=== PATIENT | female | born 1960 | race Caucasian/White ===

== ENCOUNTER → 2018-01-30 | Outpatient (CLI) | payer OTHER ==
[~2018-01-30] VITALS: Ht 165.1 cm; Wt 86.8 kg
[~2018-01-30] MED LIST: 5-HTP200 MG PO; AMITRIPTYLINE H25 M2 PO; CALCIUM500 MG PO; CELECOXIB200 MG PO; GNP B-COMPLEX1 EACH PO; TOPAMAX 25 MG T25 M1 PO; VALIUM5 MG PO; VALTREX1000 MG PO; VITAMIN D2000 UNIT PO; ZINC30 MG PO
--- NOTE | ~2018-01-30 | HPC ---
[facility] [place] [address] PAIN MANAGEMENT CONSULTATION Name: JARED BOUCHER Room #: REG TOMER M.R.#: [id number] Admission: 01/30/18 Attend Phys: Erwin Slater MD Discharge: Date of : 64 Report #: [id number] THIS REPORT FOR: //name// CC: Erwin Smalls MD DATE OF SERVICE: 01/30/2018 CHIEF COMPLAINT: Severe neck pain and radiation into the face. I last saw the patient nearly 4 years ago. I had forgotten the visit and was reminded of it by the consultation that I provided for her in 02/2014. She did not mention that I had seen her previously during our visit today. She is here today for similar symptoms as I review her record from 2014. I do note that at that time she complained more of a facial pain. While the facial pain, which is symmetrical and pressure like involving the cheeks and the jaw as well as the forehead, are problematic, it is the neck pain that seems to be worse. The patient describes her pain is a constant pressure, avoiding the use of the word pain except in most severe instances. She gets some relief from eating, it relaxes her; gentle massage, which her provides for her, physical therapy and she has some diversion distraction from work. Sleep has often been a nice escape for her and she has slept effectively. She has tried a single epidural injection many years ago with Dr. Blanco [facility] without benefit. She has had chiropractic treatments with minimal improvement. Her only medication trial has been Excedrin Migraine, which she takes three times a week and finds that it can drop her pain from a 7 down to a 3 or so for about 4-5 hours, but she admits that she does not like taking medication. She was on amitriptyline and gained 40 pounds and although it was helpful for the symptoms, she discontinued it. She has had no benefit from nonsteroidal anti-inflammatory drugs, but has not significantly utilized them nor has she had several trials. She has not had prescription strength anti-inflammatories. She and her try to walk and do some exercise on a regular basis. It is difficult during cold weather and this seems to also worsen her pain. Over the last 3 months her pain has worsened. She scores it today as a 6/10. It is affecting her life in many ways. 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 The inability to alleviate her pain causes depression and she scores her mood as an 8/10 in interference by pain. Enjoyment of life is scored at 7/10. It [address] [address] PAIN MANAGEMENT CONSULTATION Name: JARED BOUCHER Room #: REG TOMER Adams#: [id number] Admission: 01/30/18 Attend Phys: Erwin Slater MD Discharge: Date of : 64 Report #: [id number] interferes with many of her pleasurable daily activities. She does not smoke and drinks alcohol 2-3 times a week in a social setting. MEDICATIONS: Calcium, D3, Valtrex, Valium as needed and 5-HTP 200 mg once daily. ALLERGIES: NITROFURANTOIN. PAST MEDICAL HISTORY: Remarkable for asthma. PAST SURGICAL HISTORY: Cholecystectomy. SOCIAL HISTORY: As noted above. REVIEW OF SYSTEMS: Positive for facial and headaches as described, asthma, nocturia. She denies memory loss, denies confusion, nervousness, depression, denies insomnia. PHYSICAL EXAMINATION: Pleasant female, at one point during our discussion was on the verge of tears, but did not cry. Her blood pressure 111/50, heart rate 69, respirations 16, O2 sat 98. BMI is 31.5. Pupils are equal, round, react to light. EOMs are intact. There is mild tenderness below the occiput. I did not appreciate significant muscle tension. Range of motion of the cervical spine is quite good with some mild increase in pain with neck extension, but otherwise it does not markedly increase her normal symptoms of pain. No pain in the shoulders. Deep tendon reflexes are 2+ biceps, triceps, brachioradialis, also is at knees and ankles. Sensation is intact. All strength testing is noted to be symmetrical and equal. Chest is clear to auscultation. Cardiac rhythm is regular. X-rays reviewed include a new MRI, which shows continuation of degeneration of the C3-C4 facet joint on the right. This was noted in 2012 and there has been some slight increase. There is edema indicating swelling and inflammation in the area. There are also several disk osteophyte complexes noted, which contribute to pain with severe left foraminal stenosis at C6-C7 and C5-C6. IMPRESSION: Chronic cervicalgia with atypical radiation into the face and deep pressure sensation. The C3-C4 facet joint could be her initiator of pain. This is possibly followed by muscle tension resulting in the occipital headaches and the pain that radiates forward. It is also possible that she could have some discogenic pain from the cervical spine, not out of the question. A component of her pain is certainly an occipital headache mediated through the [facility] [address] [place] [address] PAIN MANAGEMENT CONSULTATION Name: JARED BOUCHER Room #: TIFF Adams#: [id number] Admission: 01/30/18 Attend Phys: Erwin Slater MD Discharge: Date of : 64 Report #: [id number] occipital nerves. I do think that this is the primary pain generator, but may be secondary. RECOMMENDATIONS: 1. Trial of Celebrex 200 mg once daily for the facet arthropathy noted on MRI on the right at C3-C4. If we can decrease inflammation there, we may affect the change throughout the entire head and neck. 2. Consider C3-C4 cervical facet injection. She might be a candidate down the line for radiofrequency ablation, although this was not discussed thoroughly today. First step would be a diagnostic/therapeutic injection. I would recommend a lateral approach to the facet joint with triamcinolone and 0.5% bupivacaine. Procedure was explained with risks and benefits. She would like to proceed with that diagnostic and therapeutic injection and we will get her on the schedule before the end of the year. Her response to amitriptyline was encouraging. She might benefit from Cymbalta, but given her experience with the previous tricyclic antidepressant, she is reluctant to try antidepressants again for chronic pain. Followup visit planned for C3-C4 facet injections in the next few weeks. Appointment is scheduled for 02/10/2018. By: [id number] Erwin Slater MD /nt
[2018-01-30 09:12] VITALS: BP 111/50
== END ==
LOC: PAIN 00:30
DX: M54.2 Cervicalgia (principal); R20.8 Other disturbances of skin sensation; G89.29 Other chronic pain

== ENCOUNTER → 2018-02-10 | Outpatient (CLI) | payer OTHER ==
[~2018-02-10] VITALS: Ht 165.1 cm; Wt 86.6 kg
--- NOTE | ~2018-02-10 | HPC ---
[facility] [place] [address] PAIN MANAGEMENT CONSULTATION Name: JARED BOUCHER Room #: REG TOMER Eduardo.#: [id number] Admission: 02/10/18 Attend Phys: Erwin Slater MD Discharge: Date of : 64 Report #: [id number] THIS REPORT FOR: //name// CC: Erwin Smalls MD DATE OF SERVICE: 02/10/2018 Followup visit for neck pain with radiation to the face. The patient returns today for the injection of the C3 cervical facet joint discussed at previous visit. I reviewed her x-ray films, discussed the procedure with her including risks and benefits, and she is anxious to proceed. She had an excellent question about whether or not we should inject both sides. There is no reason we could not other than the fact that I am interested to see if her MRI findings correlate well with her bilateral symptoms. X-rays show that she has a severely arthritic right C3-C4 facet with edema. It is not out of the question that both sides are affected by this pain in some way and before we start injecting the noninvolved side from the x-ray, I would prefer to proceed with a right-sided injection. Reviewed risks and benefits and she was taken to the fluoroscopic suite for the injection. IMPRESSION: 1. X-ray evidence of C3-C4 spinal arthritis with edema. 2. Atypical facial pain. PROCEDURE: C3-C4 facet injection under fluoroscopic guidance. DESCRIPTION OF PROCEDURE: She was taken to fluoroscopic suite. She was placed prone, skin prepped with ChloraPrep on the right side of the neck. Biplanar fluoroscopic views were used to position the needle. The skin was anesthetized with 1% lidocaine. A 25-gauge needle was gently advanced into the lateral mass and dropped into the lateral capsule of the facet joint. I injected 1/4 of a milliliter of Omnipaque and spread of dye was seen along the lateral mass and some extending into the facet joint as well. This was then followed by 1 mL of 0.5% bupivacaine mixed with 4 mg of Decadron. I used Decadron for non-particulate steroid in the neck. She tolerated the procedure well and was taken to recovery room. There were no complications. There was some diagnostic component in this injection. It should be noted that her pain was reduced in recovery room from an admission level of 6 to [address] [address] PAIN MANAGEMENT CONSULTATION Name: JARED BOUCHER Room #: REG TOMER Adams#: [id number] Admission: 02/10/18 Attend Phys: Erwin Slater MD Discharge: Date of : 64 Report #: [id number] range of motion was improved. She is pleased with this response. We will follow up in 2-4 weeks. By: [id number] Erwin Slater MD /nt
[2018-02-10 10:09] VITALS: BP 116/53
== END | disposition home or self-care (01) ==
LOC: PAIN 09:51
DX: M47.812 Spondylosis without myelopathy or radiculopathy, cervical region (principal); G50.1 Atypical facial pain; R60.9 Edema, unspecified; Z88.8 Allergy status to other drugs, medicaments and biological substances; Z79.899 Other long term (current) drug therapy; Z98.890 Other specified postprocedural states

== ENCOUNTER → 2018-03-06 | Outpatient (CLI) | payer OTHER ==
[~2018-03-06] VITALS: Ht 165.1 cm; Wt 86.3 kg
--- NOTE | ~2018-03-06 | HPC ---
[facility] [place] [address] PAIN MANAGEMENT CONSULTATION Name: JARED BOUCHER Room #: REG TOMER M.Alma.#: [id number] Admission: 03/06/18 Attend Phys: Erwin Slater MD Discharge: Date of : 64 Report #: [id number] THIS REPORT FOR: //name// CC: Erwin Smalls DATE OF SERVICE: 03/06/2018 Followup visit for cervical facet arthropathy with radiation to the C2-C3 distribution. The patient returns to pain clinic today and received a single level C3-C4 facet injection. The level of injection was based upon the findings of her x-rays correlating with her symptoms. During the performance of her x-ray guided injection, I felt that the C2-C3 joint appeared also to be arthritic. I contemplated injecting it during the performance of the C3-C4 injection, but decided they would be diagnostic potential if we injected just a single joint. She did get relief, but it took about 2 weeks, a little bit longer than anticipated and she is not sure that the injection provided all of the relief. She has had episodes of improvement that occurred intermittently over the course of the last several years. I also started her on Celebrex, which she took until she developed some GI upset and then discontinued it. She may renew that and we discussed its use, side effects and benefit. PHYSICAL EXAMINATION: Today, her blood pressure is 117/64, heart rate 60, respirations 14. Her BMI is 31.7. She is able to flex her chin forward and backwards without too much discomfort, but has quite a bit of pain with rotational movements and localized discomfort and tenderness along the right side of her neck that radiates towards her face in a C2-C3 distribution. IMPRESSION: Right-sided cervical facet arthropathy with radiculopathy. RECOMMENDATIONS: Repeat facet injection under fluoroscopic guidance including C2-C3 for improved coverage. We required preauthorization for this injection and she will need to return to the clinic at her earliest convenience. I have recommended that we inject the C2-C3 and C3-C4 facet joints at followup visit. By: 1707 [id number] Erwin Slater MD /nt
[2018-03-06 13:27] VITALS: BP 117/64
--- NOTE | 2018-03-06 13:38 | NUR ---
Pain Clinic Assessment: 1. History of Osteoarthritis: History of Rheumatoid Arthritis: 2. Height: 5 ft. 5 in. 165.1 cm. Weight: 190.2 lb. oz. 86.274 kg. Patient's BMI: 31.7 3. Vital Signs: BP: 117/64 Pulse: 60 Resp: 14 Temp: 02 Sat: 100 ECG Mon: 4. Pain Intensity: 3 5. Fall Risk: Dizziness: N Needs help standing or walking: N Fallen in the last 3 months: N Fall risk comments: 6. Patient on Blood Thinner: None 7. History of Hypertension: N 8. Opioid Therapy greater than 6 weeks: N Opiate Contract Signed: 9. Risk Assessment Tool Provided: 10. Functional Assessment Tool: 11. Recreational Drug Use: Never Drug Type: Tobacco Use: Never Smoker Tobacco Type: Amount or Packs/day: How Many Years: Alcohol Use: Yes Frequency: Quant:
== END ==
LOC: PAIN 07:16
DX: M54.12 Radiculopathy, cervical region (principal); M12.88 Other specific arthropathies, not elsewhere classified, other specified site

== ENCOUNTER → 2018-03-09 | Outpatient (CLI) | payer OTHER ==
[~2018-03-09] VITALS: Ht 165.1 cm; Wt 85.3 kg
--- NOTE | ~2018-03-09 | HPC ---
[facility] [place] [address] PAIN MANAGEMENT CONSULTATION Name: JARED BOUCHER Room #: REG TOMER Angie#: [id number] Admission: 03/09/18 Attend Phys: Erwin Slater MD Discharge: Date of : 64 Report #: [id number] THIS REPORT FOR: //name// CC: Erwin Smalls DATE OF SERVICE: 03/09/2018 REASON FOR VISIT: Followup visit for atypical facial pain and facet arthropathy. HISTORY OF PRESENT ILLNESS: The patient returns today in followup. We have discussed her ongoing pain. I saw her just a couple of days ago and had had a time to consider our treatment options. It am also in a better position to make a diagnosis on potential causes of her pain by reviewing the actual MRI films, which she brought with her. I reviewed them with the patient. We spent about 15-20 minutes discussing potential causes of her pain. She describes pain in knots within her neck that are off from massage out by her therapist. The pain then radiates up through the occiput and then anteriorly towards head and face. This does follow a bit of the C2 and C3 distribution. She has fairly diffuse tightness that she feels through the face. It is not typical of what we see in the classic trigeminal neuralgia. I would classify this as atypical facial pain. Some of this may be triggered through tightness that develops through her neck and through the occiput. At her initial visit, we discussed the possibility of suboccipital injections, trigger points encompassing the splenius capitis and cervicalis muscles bilaterally as well as the C3 nerve branches in the occipital nerve. We decided today that in absence of a profound response to her facet injection treating the C3-C4 facet, which shows degeneration on the right on her MRI that we would proceed with the injections of the soft tissue. We received preauthorization from her insurance company to go forward. She has also had a trial of Celebrex, which provided little to no relief, also suggesting a way from an arthropathy, which should have some response to an anti-inflammatory. This leads me also more into a myofascial and possibly a neuropathic pain syndrome with an atypical facial distribution. She may benefit from an antidepressant but is reluctant to start one today. If so, I would start her on a tricyclic antidepressant at a low dose. She is concerned about weight gain. She took one previously, found it helpful but gained over 10 pounds. If we start one, I would consider a shorter acting medication such as desipramine or imipramine. IMPRESSION: Atypical facial pain and cervical myofascial pain syndrome. [facility] [address] [place] [address] PAIN MANAGEMENT CONSULTATION Name: JARED BOUCHER Room #: REG TOMER Adams#: [id number] Admission: 03/09/18 Attend Phys: Erwin Slater MD Discharge: Date of : 64 Report #: [id number] PROCEDURE: Trigger point injections. DESCRIPTION OF PROCEDURE: With the patient in the prone position, skin was prepped with ChloraPrep. Skin was anesthetized and a 25-gauge 1-1/2 inch needle was used to infiltrate trigger points just below the occiput. I injected on each side 5 mL of 0.25% bupivacaine mixed with 40 mg of triamcinolone in total including both sides roughly 20 mg applied with the 5 mL dilution on each side. She tolerated the procedure well and was observed for about 30 minutes before discharge. The presenting pain was 3/10 and discharge pain 2/10. Followup visit is planned in the future on return from vacation. By: [id number] Erwin Slater MD /nt
[2018-03-09 12:34] VITALS: BP 111/66
--- NOTE | 2018-03-09 12:35 | NUR ---
Pain Clinic Assessment: 1. History of Osteoarthritis: History of Rheumatoid Arthritis: 2. Height: 5 ft. 5 in. 165.1 cm. Weight: 188.0 lb. oz. 85.276 kg. Patient's BMI: 31.3 3. Vital Signs: BP: 111/66 Pulse: 74 Resp: 13 Temp: 02 Sat: 97 ECG Mon: 4. Pain Intensity: 3 5. Fall Risk: Dizziness: N Needs help standing or walking: N Fallen in the last 3 months: N Fall risk comments: 6. Patient on Blood Thinner: None 7. History of Hypertension: N 8. Opioid Therapy greater than 6 weeks: N Opiate Contract Signed: 9. Risk Assessment Tool Provided: 10. Functional Assessment Tool: 11. Recreational Drug Use: Never Drug Type: Tobacco Use: Never Smoker Tobacco Type: Amount or Packs/day: How Many Years: Alcohol Use: Yes Frequency: Weekly Quant:
== END | disposition home or self-care (01) ==
LOC: PAIN 07:13
DX: M79.18 Myalgia, other site (principal); M46.96 Unspecified inflammatory spondylopathy, lumbar region; Z88.8 Allergy status to other drugs, medicaments and biological substances; Z79.899 Other long term (current) drug therapy; Z98.890 Other specified postprocedural states

== ENCOUNTER → 2018-04-13 | Outpatient (CLI) | payer OTHER ==
[~2018-04-13] VITALS: Ht 165.1 cm; Wt 86.6 kg
[2018-04-13 10:07] VITALS: BP 107/66
--- NOTE | 2018-04-13 10:20 | NUR ---
Pain Clinic Assessment: 1. History of Osteoarthritis: Not Applicable History of Rheumatoid Arthritis: Not Applicable 2. Height: 5 ft. 5 in. 165.1 cm. Weight: 191.0 lb. oz. 86.637 kg. Patient's BMI: 31.8 3. Vital Signs: BP: 107/66 Pulse: 70 Resp: 14 Temp: 02 Sat: 100 ECG Mon: 4. Pain Intensity: 5 5. Fall Risk: Dizziness: N Needs help standing or walking: N Fallen in the last 3 months: N Fall risk comments: 6. Patient on Blood Thinner: None 7. History of Hypertension: N 8. Opioid Therapy greater than 6 weeks: N Opiate Contract Signed: 9. Risk Assessment Tool Provided: 10. Functional Assessment Tool: 11. Recreational Drug Use: Never Drug Type: Tobacco Use: Never Smoker Tobacco Type: Amount or Packs/day: How Many Years: Alcohol Use: Yes Frequency: Quant:
--- NOTE | 2018-04-24 07:40 | HPC ---
[facility] [place] [address] PAIN MANAGEMENT CONSULTATION Name: JARED BOUCHER Room #: REG TOMER Eduardo.#: [id number] Admission: 04/13/18 ������������������ Attend Phys: Erwin Slater MD Discharge: ������������������ Date of : 64 Report #: [id number] THIS REPORT FOR: //name// CC: Erwin Smalls MD DATE OF SERVICE: 04/13/2018 Followup visit for chronic atypical facial pain. The patient returns to clinic today with further discussions about treatment of this now 10-year problem. At one point in our discussion today she was nearly in tears describing how difficult it is to live with chronic pain every day. She describes it as exhausting. She pushes through it. She has been looking for something to help ease the pain. She would love it to go away, but understood that we may only be able to modify its intensity. She has had multiple medication trials and we have now tried some injections. Her most recent injection on 03/09/2018 was a trigger point injection in and around the greater occipital nerve below the occiput. She had 10 days of nearly complete pain relief. This is most favorable response she has had to any intervention including Botox and other injections in the past. Based upon that response and the favorable long duration of response greater than the local anesthetic effect, I have elected to repeat the injection today. We discussed a possible third followup injection in another month or two with the hope that we can provide some longer term and substantial and meaningful relief. It may never completely go away, but we have talked about trying to get it down to a level where it no longer carries the level of intensity that she describes today. Her daily pain is at least a 5. PHYSICAL EXAMINATION: She is pleasant, but obviously frustrated by her ongoing challenging pain. Blood pressure 107/66, heart rate 70, respirations 14, BMI 31.8. Tenderness below the occiput bilaterally. Some pressure in this area, radiates pain in an unusual distribution anteriorly and into the facial region bilaterally. IMPRESSION: Atypical facial pain. PROCEDURE: Bilateral trigger point injections in the cervical region below the occiput. With the patient in the prone position, skin was prepped with ChloraPrep. Skin anesthetized and a 25-gauge needle was used to infiltrate at a depth of about 1-1/2 inches a total of 5 mL of 0.25% bupivacaine mixed with 20 mg of triamcinolone on each side. The medication was injected in a fan-shaped manner. [facility] [address] [place] [address] PAIN MANAGEMENT CONSULTATION Name: JARED BOUCHER Room #: REG CLVentura Angie#: [id number] Admission: 04/13/18 ������������������ Attend Phys: Erwin Slater MD Discharge: ������������������ Date of : 64 Report #: [id number] Gentle massage applied. At the conclusion of the procedure her pain score was diminished by about half and she was discharged to follow up with me in about 6 weeks. We have discussed medications some and would consider the use of a different tricyclic antidepressant, which has been helpful in the past because weight gain or perhaps even a longer acting opioid given the fact that she has dealt with this so long. We have used methadone in low dose for a number of patients with atypical facial pain with good results. I have discussed all of this with her. Twenty minutes in consultation including the procedure. ��������������������������������������������� <ELECTRONICALLY SIGNED> ���������������������������������������� By: Erwin Slater MD ��������������������������������������������� 04/24/18 0740 [id number] Erwin Slater MD /nt
== END | disposition home or self-care (01) ==
LOC: PAIN 06:47
DX: M79.18 Myalgia, other site (principal); G89.29 Other chronic pain; Z98.890 Other specified postprocedural states; Z88.8 Allergy status to other drugs, medicaments and biological substances; Z79.899 Other long term (current) drug therapy

== ENCOUNTER → 2018-05-11 | Outpatient (CLI) | payer OTHER ==
[~2018-05-11] VITALS: Ht 165.1 cm; Wt 87.5 kg
[~2018-05-11] MED LIST changes: +ESTRADIOL1 EAC2 TRANSDERM; +PROGESTERONE100 MG PO
[2018-05-11 13:58] VITALS: BP 102/68
--- NOTE | 2018-05-11 14:17 | NUR ---
Pain Clinic Assessment: 1. History of Osteoarthritis: Not Applicable History of Rheumatoid Arthritis: Not Applicable 2. Height: 5 ft. 5 in. 165.1 cm. Weight: 193.0 lb. oz. 87.544 kg. Patient's BMI: 32.1 3. Vital Signs: BP: 102/68 Pulse: 63 Resp: 16 Temp: 02 Sat: 100 ECG Mon: 4. Pain Intensity: 6 5. Fall Risk: Dizziness: N Needs help standing or walking: N Fallen in the last 3 months: N Fall risk comments: 6. Patient on Blood Thinner: None 7. History of Hypertension: N 8. Opioid Therapy greater than 6 weeks: N Opiate Contract Signed: 9. Risk Assessment Tool Provided: 10. Functional Assessment Tool: 11. Recreational Drug Use: Never Drug Type: Tobacco Use: Never Smoker Tobacco Type: Amount or Packs/day: How Many Years: Alcohol Use: Yes Frequency: Quant:
--- NOTE | 2018-05-17 15:29 | HPC ---
[facility] [place] [place] [address] PAIN MANAGEMENT CONSULTATION Name: JARED BOUCHER Room #: REG TOMER MLissette.#: [id number] Admission: 05/11/18 ������������������ Attend Phys: Erwin Slater MD Discharge: ������������������ Date of : 64 Report #: [id number] THIS REPORT FOR: //name// CC: Erwin Smalls DATE OF SERVICE: 05/11/2018 CHIEF COMPLAINT: Followup visit for cervicalgia, atypical facial pain and occipital neuralgia. The patient returns to pain clinic today and after her last injections, the trigger points are below the occiput involving the cervical muscle groups as well as anesthetizing the occipital nerve. I believe that we have identified a possible pain pathway for her atypical facial pain. She reported that she had significant improvement in pain that lasted for several days. Some of the best improvement she has seen in years. She would like to see if we can repeat the injections today. We previously discussed these as trigger point injections. They are indeed injections into and around the muscle since we are not specifically identifying the nerve, but without question, I am anesthetizing the greater occipital nerve, which I believe may play a better and more important role in providing this interruption of pain generator. If this is true, then she may be a candidate for an occipital nerve stimulator. I see these injections providing a diagnostic opportunity. PHYSICAL EXAMINATION: She is 5 feet 5 inches, 193 pounds, BMI 31.1. Blood pressure 102/68, heart rate 63, O2 sat 100. Pain intensity 6/10. She has some tenderness below the occiput. She describes this as tenderness. This pain then causes ongoing radiation in a typical distribution with facial pain and headaches. IMPRESSION: Atypical facial pain with occipital neuralgia and cervical myofascial pain syndrome. RECOMMENDATION: Repeat bilateral trigger point injections/greater occipital nerve blocks bilaterally in the cervical region below the occiput. DESCRIPTION OF PROCEDURE: The patient was placed in the prone position. We began first on the left. The skin entry point was identified below the occiput midway between the spinous process and the lateral aspect of the occiput. Needle was then gently advanced down below the occiput to its full depth and I gently injected in a fan distribution along the base of the occiput a total of 0.25% bupivacaine 4 mL with 20 mg of triamcinolone. The needle was removed and the same procedure was performed on the right. She was observed for a short [facility] [address] [place] [address] PAIN MANAGEMENT CONSULTATION Name: JARED BOUCHER [facility] #: [facility]utter [facility] CenterJody[facility] [id number] Admission: 05/11/18 ������������������ Attend Phys: Erwin Slater MD Discharge: ������������������ Date of : 64 Report #: [id number] time and discharged. We will follow up and see if this provides again symptomatic relief for both diagnostic and therapeutic purposes. She was provided with some information about occipital stimulators. This is not currently a plan, but an option. No new medications were ordered. ��������������������������������������������� <ELECTRONICALLY SIGNED> ���������������������������������������� By: Erwin Slater MD ��������������������������������������������� 05/17/18 1529 [id number] Erwin Slater MD /nt
== END | disposition home or self-care (01) ==
LOC: PAIN 06:50
DX: M54.2 Cervicalgia (principal); M54.81 Occipital neuralgia; M79.18 Myalgia, other site; Z88.8 Allergy status to other drugs, medicaments and biological substances; Z79.899 Other long term (current) drug therapy

== ENCOUNTER → 2018-06-15 | Outpatient (CLI) | payer OTHER ==
[~2018-06-15] VITALS: Ht 165.1 cm; Wt 87.1 kg
--- NOTE | ~2018-06-15 | HPC ---
[facility] [address] [place] [address] PAIN MANAGEMENT CONSULTATION Name: JARED BOUCHER Room #: REG NESSAVentura Clark.#: [id number] Admission: 06/15/18 ������������������ Attend Phys: Erwin Slater MD Discharge: ������������������ Date of : 64 Report #: [id number] THIS REPORT FOR: //name// CC: Erwin Smalls DATE OF SERVICE: 06/15/2018 Followup visit for chronic cervicalgia, atypical facial pain and occipital neuralgia with myofascial features. The patient is here today in the pain clinic today reporting that the pain has returned after her most recent injections. We spent some time today reviewing medication options. She has received some of her best relief with Valium. It provides a muscle relaxant effect for her and her only downside is that it provides sedation. We have talked about initiating another trial with the Valium starting at a low dose 2.5 mg, increasing it to see if she becomes more tolerant to the sedating effects. This is a consideration for long-term therapy and we needed enter into that decision with open eyes understanding that if she finds that this alleviates her longstanding symptoms that she will actually likely remain on it indefinitely. She has been dealing with it so long that she is willing to accept that as an option. We discussed the difference between dependence and addiction. She would prefer also to be on this rather than an opioid. I have previously discussed opioid trials as well. At one point, we have even discussed methadone. Before embarking on this, we also reviewed other classes of medications including antidepressants, nonsteroidal anti-inflammatory drugs, MEIER-2 inhibiting anti-inflammatories, anti-seizure medications. She has had trials with many of these over several years and has found that they either have side effects or lack efficacy. PHYSICAL EXAMINATION: GENERAL: Pleasant and thoughtful. VITAL SIGNS: Blood pressure 119/69, heart rate 61, respirations 16. She has tenderness below the occiput. There are no visible features to her pain. IMPRESSION: Chronic atypical facial pain and cervical myofascial pain syndrome. Occipital neuralgia. PLAN: Medication management. She was given a prescription for diazepam 5 mg 1 [facility] [address] [place] [address] PAIN MANAGEMENT CONSULTATION Name: JARED BOUCHER Room #: REG CL Balbina.Alma.#: [id number] Admission: 06/15/18 ������������������ Attend Phys: Erwin Slater MD Discharge: ������������������ Date of : 64 Report #: [id number] tablet t.i.d. p.r.n. as directed and 2 refills. I will see her back in the pain clinic in 3-4 months. ��������������������������������������������� ���������������������������������������� By: ��������������������������������������������� 1702 [id number] Erwin Slater MD /nt
[2018-06-15 14:36] VITALS: BP 119/69
--- NOTE | 2018-06-15 14:44 | NUR ---
Pain Clinic Assessment: 1. History of Osteoarthritis: Not Applicable History of Rheumatoid Arthritis: Not Applicable 2. Height: 5 ft. 5 in. 165.1 cm. Weight: 192.0 lb. oz. 87.091 kg. Patient's BMI: 32.0 3. Vital Signs: BP: 119/69 Pulse: 61 Resp: 16 Temp: 02 Sat: 100 ECG Mon: 4. Pain Intensity: 1-2 5. Fall Risk: Dizziness: N Needs help standing or walking: N Fallen in the last 3 months: N Fall risk comments: 6. Patient on Blood Thinner: None 7. History of Hypertension: N 8. Opioid Therapy greater than 6 weeks: N Opiate Contract Signed: 9. Risk Assessment Tool Provided: LOW 10. Functional Assessment Tool: 11. Recreational Drug Use: Never Drug Type: Tobacco Use: Never Smoker Tobacco Type: Amount or Packs/day: How Many Years: Alcohol Use: Yes Frequency: Special Occasions Quant:
== END ==
LOC: PAIN 07:14
DX: G89.29 Other chronic pain (principal); G50.1 Atypical facial pain; M79.18 Myalgia, other site; Z79.891 Long term (current) use of opiate analgesic

== ENCOUNTER → 2018-12-11 | Outpatient (CLI) | payer OTHER ==
[~2018-12-11] VITALS: Ht 165.1 cm; Wt 89.4 kg
[~2018-12-11] MED LIST changes: +ZANAFLEX4 M1 PO
[2018-12-11 09:08] VITALS: BP 118/80
--- NOTE | 2018-12-11 09:15 | NUR ---
Pain Clinic Assessment: 1. History of Osteoarthritis: Not Applicable History of Rheumatoid Arthritis: Not Applicable 2. Height: 5 ft. 5 in. 165.1 cm. Weight: 197.0 lb. oz. 89.359 kg. Patient's BMI: 32.8 3. Vital Signs: BP: 118/80 Pulse: 70 Resp: 16 Temp: 02 Sat: 98 ECG Mon: 4. Pain Intensity: 3 5. Fall Risk: Dizziness: N Needs help standing or walking: N Fallen in the last 3 months: N Fall risk comments: 6. Patient on Blood Thinner: None 7. History of Hypertension: N 8. Opioid Therapy greater than 6 weeks: N Opiate Contract Signed: 9. Risk Assessment Tool Provided: LOW 10. Functional Assessment Tool: 11. Recreational Drug Use: Never Drug Type: Tobacco Use: Never Smoker Tobacco Type: Amount or Packs/day: How Many Years: Alcohol Use: Yes Frequency: Weekly Quant: 1-2
--- NOTE | 2018-12-12 13:52 | HPC ---
[facility] [address] [place] [address] PAIN MANAGEMENT CONSULTATION Name: JARED BOUCHER Room #: REG TOMER M.Alma.#: [id number] Admission: 12/11/18 Attend Phys: Mary Elaine Discharge: Date of : 64 Report #: [id number] THIS REPORT FOR: //name// CC: [facility] Chen [facility] DATE OF SERVICE: 12/11/2018 CHIEF COMPLAINT: Chronic cervicalgia, atypical facial pain, occipital neuralgia with headaches. HISTORY OF PRESENT ILLNESS: This is a very pleasant 58-year-old female, who returns to the pain clinic today for a refill of her medication that she uses to help treat her ongoing headaches as a result of chronic cervicalgia and her facial pain. She reports that she had a fairly good summer and was not needing to take her Valium every day, but her pain, muscle spasms, and headache have been increasing, does start at the base of her neck, radiates up into her occipital area of her head and then around to the frontal portion and involving her face. She rates the pain score of 3/10 today. It is of sore pressure feeling. She tells me her headaches are worse with weather changes, but the medication has been helpful, but she does report that she is unable to take 5 mg tablet without having to go to sleep where she was at work and is also wondering if there is any other alternatives that we have to offer her. ALLERGIES: NITROFURANTOIN. LIST OF MEDICATIONS: Valium 5 mg p.r.n., progesterone 100 mg daily, estradiol patch weekly, calcium, Valtrex, and vitamin D. PQRS: 1. Denies a history of osteoarthritis or rheumatoid arthritis. 2. Height is 5 feet 5 inches, weight is 197, and BMI is 32. 3. Vital signs 118/80, pulse is 70, respiration 16, and oxygen sat is 98. 4. Pain score is 3/10. 5. Denies dizziness, does not need help walking or standing, has not fallen in the last 3 months. 6. The patient is not on any blood thinners and does not take medicine for hypertension. 7. She is not on any opioid therapy. Her risk assessment tool is low. Functional assessment is 29/70. 8. Recreational drug use, she denies. She is not a smoker and occasionally drinks alcohol. We did check the prescription monitoring system. The patient is not filling any opioids and I see where she has filled her Valium appropriately. [facility] [address] [place] [address] PAIN MANAGEMENT CONSULTATION Name: JARED BOUCHER Room #: REG TOMER Adams#: [id number] Admission: 12/11/18 Attend Phys: Mary Elaine Discharge: Date of : 64 Report #: [id number] PHYSICAL EXAMINATION: GENERAL: This is an alert and orientated 58-year-old female, who appears her stated age, placing her current pain score today at 3/10. HEENT: Normocephalic and atraumatic. Extraocular eye muscles are intact. MUSCULOSKELETAL: She has tenderness at the occipital area bilaterally. Pain radiates up into the temporal part of her forehead and then radiates into her eyes as well. No visual features of her pain. Pain causes ongoing radiation in typical distribution with the facial pain and headaches. IMPRESSION: 1. Atypical facial pain with occipital neuralgia. 2. Cervicalgia. 3. Cervical myofascial pain syndrome. 4. Headache. We reviewed the fact that opiate medications are being used to provide analgesia adequate to support activities of daily living, not attempting to achieve a specific pain score on the 0-10 Visual Analog Scale. The current opiate medications are providing sufficient analgesia to allow the patient to participate in activities of daily living. The patient is not exhibiting any aberrant behavior suggestive of drug diversion. The patient is not having any adverse reactions to medications. The patient is not suffering from daytime somnolence or mental acuity changes. The patient is managing opiate-induced constipation with appropriate [id number] agents and dietary considerations. The patient was counseled on concern for caution with operating a motor vehicle while using opiate medications. A physical exam was performed and the patient's functional status was evaluated. All patients with back pain were advised against the bed rest greater than 4 days and were advised to return to normal activities. Pain score assessment was noted and the treatment plan was reviewed with the patient. All current medications, both prescribed and OTC were reviewed and reconciled on the electronic medical record. Tobacco screening was accomplished and smoking cessation was advised when indicated. BMI was noted and diet/exercise modification was recommended for all patients following outside normal parameters. I reviewed with the patient today their responsibilities to safeguard prescription medications, reviewed their responsibility to utilize medications only as prescribed by the physician. They are to seek and receive pain medications only from 1 physician group ( [facility]). They are to use 1 pharmacy and keep the clinic informed if they change pharmacies. Their responsibilities include making followup visits in a timely fashion and to avoid abrupt discontinuation of medication usage. Their responsibilities further include bringing their medications (bottles from the pharmacy with residual pills) to the visit for possible confirmation of pill counts and the patient [address] [address] PAIN MANAGEMENT CONSULTATION Name: JARED BOUCHER Room #: TIFF Adams#: [id number] Admission: 12/11/18 Attend Phys: Mary Elaine Discharge: Date of : 64 Report #: [id number] understands it is their responsibility to submit to random drug screens to ensure both that the medications prescribed are present, and that no other controlled substances are present. All prescriptions provided today were generated electronically. PLAN: 1. We discussed treatment options with the patient today. The patient feels that the Valium has been beneficial in helping reduce some of her muscle spasms and her pain in her ongoing atypical headaches. She is only able to take half of a pill when she is working because 5 mg makes her too sleepy. She is wondering if there are any other alternatives. We will refill her Valium today of 5 mg #90 with 2 additional refills. 2. We discussed other treatment options that might be beneficial. She has tried many muscle relaxants in the past such as baclofen, Soma, and Flexeril. Tizanidine as a medication she is unfamiliar with, we will give her a trial of 4 mg tablet and instructed to take a half to one up to 3 times a day, #90, with one additional refill. The patient instructed to try this medicine first at home when she is not at work because it does have some sedating properties. The patient verbalizes understanding. 4. I did talk to her about Botox and she does not have typical migraine headaches, but she does suffer from ongoing headaches. I gave her the name of Denia Santos, who is a family nurse practitioner that does do Botox injections. The patient tells me she had had Botox in the past, but only 3 total injections, that was not beneficial, not the typical sites that is normally practiced for migraine associated headaches. 5. The patient will call as needed for an appointment. The patient is seen in collaboration with Dr. Erwin Slater. <ELECTRONICALLY SIGNED> By: Mary Elaine 12/12/18 1352 1032 [id number] Mary Elaine /nt
== END ==
LOC: PAIN 06:44
DX: M54.81 Occipital neuralgia (principal); M54.2 Cervicalgia; R51 Headache; Z88.8 Allergy status to other drugs, medicaments and biological substances; Z79.899 Other long term (current) drug therapy